=== PATIENT | female | born 1940 | race Caucasian/White ===

== ENCOUNTER 2018-03-31 10:39 | Day surgery (SDC) | payer MEDICARE ==
[~2018-03-31 10:39] MED LIST: ACETAMINOPHEN 1,000 MG/100 ML BTL IV ONE; CEFAZOLIN 2 Gram 2 GM/50 ML BAG IVPB ONE
[2018-03-31] MEDS ORDERED: FENTANYL PF 100MCG/2ML VIAL IV ONE (10:40)
[2018-03-31] MEDS ORDERED: EPINEPHRINE 1 MG/ML AMPUL SQ ONE (10:40)
[2018-03-31] MEDS ORDERED: LIDOCAINE 2% MDV (20MG/ML) 20ML VIAL IV ONE (10:40)
[2018-03-31] MEDS ORDERED: PROPOFOL 10 MG/ML VIAL IV ONE (10:40)
[2018-03-31] MEDS ORDERED: METHYLPREDNISOLONE 40MG/VIAL IM ONE (10:40)
[2018-03-31] MEDS ORDERED: ONDANSETRON HCL IV 4 MG/2 ML VIAL IVP ONE (10:40)
[2018-03-31] MEDS ORDERED: MIDAZOLAM HCL 2MG/2ML VIAL IV ONE (10:40)
[2018-03-31] MEDS ORDERED: DEXAMETHASONE 4 MG/ML 1ML VIAL IVP ONE (10:40)
[2018-03-31] MEDS ORDERED: BUPIVACAINE 0.5% W/EPI MPF 30 ML VIAL IVP ONE (10:40)
[2018-03-31] MEDS ORDERED: MORPHINE SULFATE 4 MG/ML VIAL IVP ONE (10:40)
[2018-03-31] MEDS ORDERED: SEVOFLURANE 250 ML INH ONE (10:40)
[2018-03-31] MEDS ORDERED: MORPHINE SULFATE 4 MG/ML VIAL ONE (12:29)
--- NOTE | 2018-03-31 19:35 | Operative Note ---
DATE OF SURGERY: 03/31/2018 PREOPERATIVE DIAGNOSIS: INTERNAL DERANGEMENT OF THE RIGHT KNEE. POSTOPERATIVE DIAGNOSES: 1. LARGE FLAP TEAR INVOLVING THE POSTERIOR HORN OF THE MEDIAL MENISCUS. 2. FRINGE TEAR INVOLVING THE LATERAL AND ANTERIOR HORN OF THE LATERAL MENISCUS. PROCEDURE: RIGHT KNEE ARTHROSCOPY WITH PARTIAL MEDIAL AND LATERAL MENISCECTOMIES. STAFF SURGEON: TEN CARDONA M.D. ANESTHESIA: GENERAL. PREPARATION: CHLORAPREP. INDIVIDUAL CONSIDERATIONS: NONE. PROCEDURE: The patient was taken to the Operating Room and placed supine on the operating table. She had a successful induction of a general anesthetic. Her right knee was prepped and then draped in the usual fashion. Examination under anesthesia showed normal ligaments. The patient had a superior lateral inflow cannula placed. The skin was infiltrated with 0.5% Marcaine with Epinephrine prior. A clear effusion was drained. The knee was inflated with normal saline. An inferior medial and an inferior lateral portal were made in a similar fashion. The arthroscope was introduced through the inferior lateral portal up into the pouch. The patellofemoral joint showed maybe some soft change but nothing to debride, no significant synovitis in either pouch or gutter and no loose bodies were seen. Medially, she had a large displaced flap tear involving the posterior horn of the medial meniscus with the stalk posteromedially. This was amputated. Basically most of the posterior horn was debrided out with basket forceps and a shaver. The articular cartilage looked good. In the notch, the cruciates were normal. Laterally, articular cartilage was good but she had a fringe tear involving the lateral and anterior horns, which were smoothed off with a shaver. The knee was irrigated out with saline to remove loose floating debris. Portals were closed with inessa and 20 mL of 0.5% Marcaine with Epinephrine along with 4 mg of Morphine and 80 mg of Depo-Medrol were injected into the knee and a sterile Bulkee compressive dressing was applied. The patient tolerated the procedure well. Needle and sponge counts were correct. Estimated blood loss was minimal and she was taken back to Recovery in good condition. There were no complications. JOB NUMBER: [id number] MTDD
== END 2018-03-31 14:05 | disposition home or self-care (01) ==
LOC: SUR 10:39
PROVIDERS: ATTEND Orthopaedic Surgery
DX: S83.241A Other tear of medial meniscus, current injury, right knee, initial encounter (principal); S83.281A Other tear of lateral meniscus, current injury, right knee, initial encounter
CPT/HCPCS: J0171; J1030; J2270; J2405

== ENCOUNTER 2018-06-09 11:21 | Day surgery (SDC) | payer MEDICARE ==
[2018-06-09] MEDS ORDERED: FENTANYL PF 100MCG/2ML VIAL IV ONE (11:22)
[2018-06-09] MEDS ORDERED: MIDAZOLAM HCL 2MG/2ML VIAL IV ONE (11:22)
[2018-06-09] MEDS ORDERED: LIDOCAINE 2% MDV (20MG/ML) 20ML VIAL IV ONE (11:22)
[2018-06-09] MEDS ORDERED: PROPOFOL 10 MG/ML VIAL IV ONE (11:22)
[2018-06-09] MEDS ORDERED: DESFLURANE 240 ML BTL INH ONE (11:22)
[2018-06-09] MEDS ORDERED: ONDANSETRON HCL IV 4 MG/2 ML VIAL IVP ONE (11:22)
[2018-06-09] MEDS ORDERED: BUPIVACAINE 0.5% W/EPI MPF 30 ML VIAL IVP ONE (11:22)
[2018-06-09] MEDS ORDERED: DEXAMETHASONE 4 MG/ML 1ML VIAL IVP ONE (11:22)
[2018-06-09] MEDS ORDERED: MORPHINE SULFATE 4 MG/ML VIAL ONE (14:17)
--- NOTE | 2018-06-10 10:30 | Operative Note ---
DATE OF SURGERY: 06/09/2018 PREOPERATIVE DIAGNOSIS: Internal derangement of right knee. Question tear of the medial meniscus. POSTOPERATIVE DIAGNOSES: 1. Complex tear involving anterior and posterior horn of the medial meniscus. 2. 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 OPERATION: Right knee arthroscopy with partial medial meniscectomy. Staff Surgeon: Filiberto Velásquez MD Anesthesia: General. Preparation: Chloraprep. Individual Considerations: None. PROCEDURE: The patient was taken to the operating room, placed supine on the operating room table. The patient had a successful induction of a general anesthetic. The right lower extremity was prepped and draped in the usual fashion. The patient had a superolateral inflow cannula placed. Skin was infiltrated with 0.5% Marcaine with epinephrine prior. A clear effusion was drained. The knee was inflated with normal saline. An inferomedial and an inferolateral portal were made in a similar fashion. The arthroscope was introduced through the inferolateral portal up into the pouch. Patellofemoral compartment was normal. No loose bodies were seen in the pouch or either gutter medially. She had a new flap tear involving the posterior horn of the medial meniscus. She had a previous resection but this was clearly new. There was some fraying anteriorly. A basket forceps and a shaver were used to remove the unstable portions. There was small grade 3 change in the femoral condyles and soft change at the tibial plateau. In the notch, the cruciates were normal. Lateral compartment structures were absolutely normal. The knee was irrigated out with saline to remove loose floating debris. Portals were closed with inessa, and 20 mL of 0.25% Marcaine with epinephrine along with 4 mg of morphine and 80 mg of Depo-Medrol were injected into the knee. A sterile bulky compressive dressing was applied. The patient tolerated procedure well. Needle and sponge counts were correct. Estimated blood loss was minimal. She was taken back to recovery in good condition. There were no complications. JACKELIN
== END 2018-06-09 15:35 | disposition home or self-care (01) ==
LOC: SUR 11:21
PROVIDERS: ATTEND Orthopaedic Surgery
DX: S83.231A Complex tear of medial meniscus, current injury, right knee, initial encounter (principal); M94.261 Chondromalacia, right knee
CPT/HCPCS: 29881; 01400; J2405; J3010; J0690; J2270

== ENCOUNTER 2019-06-28 18:23 | Inpatient (IN) | payer MEDICARE ==
[2019-06-28] MEDS ORDERED: ONDANSETRON HCL IV 4 MG/2 ML VIAL IVP ONE (18:35)
--- NOTE | 2019-06-28 18:39 | Emergency Department Record ---
History of Present Illness - General Chief Complaint: Fever Stated Complaint: FEVER/VOMITTING Time Seen by Provider: 06/28/19 18:34 Source: Patient Mode of Arrival: Ambulatory Limitations: No limitations - History of Present Illness Initial Comments: 78 yo female presents to ED for evaluation of nausea, vomiting, flank pain, and fevers/chills that began last evening, worsened today. Patient denies productive cough symptoms, reports similar symptoms 2 years ago however resulting from an infected kidney stone. Patient denies health problems at her baseline. MD Complaint: Fever, Weakness Onset/Timin -: Days(s) Associated Symptoms: Abdominal pain, Vomiting, Chills, Nausea - Related Data Home Medications Medication Instructions Recorded Confirmed Last Taken Multivitamin [Daily Multiple 1 tab PO DAILY 06/28/19 06/28/19 Unknown Vitamin] Solifenacin Succinate [Vesicare] 10 mg PO DAILY 06/28/19 06/28/19 Unknown Allergies Allergy/AdvReac Type Severity Reaction Status Date / Time No Known Drug Allergies Allergy Verified 03/29/18 10:10 Review of Systems Constitutional: Reports: Chills, Fever. Denies: Malaise, Night sweats Eyes: Denies: Eye discharge, Eye pain ENT: Denies: Congestion, Ear pain, Epistaxis Respiratory: Denies: Cough, Dyspnea Cardiovascular: Denies: Chest pain, Dyspnea on exertion Endocrine: Denies: Fatigue, Heat or cold intolerance Gastrointestinal: Reports: Abdominal pain, Nausea, Vomiting. Denies: Constipation Genitourinary: Denies: Incontinence, Retention Musculoskeletal: Reports: Back pain. 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 - CARDIOVASCULAR Hx Cardio Disorders: No - NEURO Hx Neuro Disorders: No - GI Hx GI Disorders: Yes Hx Reflux: Yes (occassionally) - Hx Genitourinary Disorders: Yes Hx Bladder Problem: Yes (incontinent takes meds wears a pad at times) Hx Kidney Stones: Yes - ENDOCRINE Hx Endocrine Disorders: No - MUSCULOSKELETAL Hx Musculoskeletal Disorders: Yes Comment:: right knee pain - PSYCH Hx Psych Problems: No - HEMATOLOGY/ONCOLOGY Hx Hematology/Oncology Disorders: Yes 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 negative: Conjunctival injection, Periorbital swelling, Periorbital tenderness, Scleral icterus - ENT Ear exam: negative: Auricular hematoma, Auricular trauma Nasal Exam: negative: Active bleeding, Discharge, Dried blood, Foreign body Mouth exam: negative: Drooling, Laceration, Muffled voice, Tongue elevation - Neck Neck exam: Normal inspection. negative: Meningismus, Tenderness - Respiratory Respiratory exam: Normal lung sounds bilaterally. negative: Rales, Respiratory distress, Rhonchi, Stridor - Cardiovascular Cardiovascular Exam: Normal rhythm, Normal heart sounds, Tachycardia - GI/Abdominal GI/Abdominal exam: Soft, Tenderness. negative: Rebound, Rigid - Rectal Rectal exam: Deferred - exam: Deferred - Extremities Extremities exam: Normal inspection. negative: Pedal edema, Tenderness - Back Back exam: Denies: CVA tenderness (R), CVA tenderness (L) - Neurological Neurological exam: Alert, Normal gait, Oriented X3 - Psychiatric Psychiatric exam: Normal affect, Normal mood - Skin Skin exam: Normal color. negative: Abrasion Type of lesion: negative: abrasion Course - Reevaluation(s) Reevaluation #1: 06/28/19 19:36 Laboratory studies were reviewed and appear grossly unremarkable for an acute process except for the following: CT Abdomen and Pelvis: Concern for wall thickening of the distal stomach ? Wall thickening vs. under-distention at the level of splenic flexure No hydronephrosis, bilateral non-obstructing nephrolithiasis 7.5 mm hyperdense lesion superior pole right kidney-too small to characterize, follow-up reccomended. Reevaluation #2: 06/28/19 20:03 UA was reviewed: 0-2 RBCs >50 WBCs 0-2 Epithelial cells Moderate bacteria CXR: No acute process Review of the patient's UA, influenza, CXR, and laboratory results appears c/w acute pyelonephritis. Will initiate treatment with Rocephin with plan for admission due to nausea, vomiting, and fever symptoms. Patient is in agreement with the plan of care as discussed. Reevaluation #3: 06/28/19 20:20 Case was discussed with Venus Lowe NP, will accept admission at this time. Medical Decision Making - Lab Data Result diagrams: 06/28/19 18:40 06/28/19 18:40 Disposition Disposition: Admit Clinical Impression: Pyelonephritis Nausea & vomiting Qualifiers: Vomiting type: unspecified Vomiting Intractability: non-intractable Qualified Code(s): R11.2 - Nausea with vomiting, unspecified Fever Qualifiers: Fever type: unspecified Qualified Code(s): R50.9 - Fever, unspecified Disposition: Still a Patient at [facility] Decision to Admit: Admit from ER Decision to Admit Date: 06/28/19 Decision to Admit Time: 20:06 Condition: (2) Stable Forms: Patient Portal Access Time of Disposition: 20:06 Quality - Quality Measures Quality Measures: N/A - Blood Pressure Screening Does Patient Have Any of the Following: No Blood Pressure Classification: Pre-Hypertensive BP Reading Systolic Measurement: 123 Diastolic Measurement: 63 Screening for High Blood Pressure: < Pre-Hypertensive BP, F/U Documented > [G8950] Pre-Hypertensive Follow-up Interventions: Referral to alternative/primary care provider.
[2019-06-28] MEDS ORDERED: 0.9 % SODIUM CHLORIDE 1000ML 1,000 ML IV SCH (18:45)
[2019-06-28 18:51] LABS: ABSOLUTE NEUTROPHIL COUNT 5.32; HEMATOCRIT 39.1 % (35.0-47.0); HEMOGLOBIN 12.3 gm/dl (11.6-16.0); MEAN CELL VOLUME 93.5 fl (81-97); MEAN CORPUSCULAR HEMOGLOBIN 29.4 pg (27-33); MEAN CORPUSCULAR HGB CONC 31.5 g/dl (32-36); MEAN PLATELET VOLUME 9.5 fl (7.4-10.4); PLATELET COUNT 254 K/uL (130-400); RED BLOOD COUNT 4.18 M/uL (3.80-5.40); RED CELL DISTRIBUTION WIDTH 13.4 % (11.5-14.5); WHITE BLOOD COUNT W/O DIFF 6.6 K/uL (4.2-12.2)
[2019-06-28 19:02] LABS: BILIRUBIN,TOTAL 0.4 mg/dL (0.2-1.0); TOTAL PROTEIN 7.3 g/dL (6.6-8.7)
[2019-06-28] MEDS ORDERED: ACETAMINOPHEN 500 MG TABLET PO ONE (19:05)
[2019-06-28 19:07] LABS: ALB/GLOB RATIO 1.4 (1.1-1.8); ALBUMIN 4.2 g/dL (4.0-5.0)
[2019-06-28 19:14] LABS: INFLUENZA A NEGATIVE (NEGATIVE); INFLUENZA B NEGATIVE (NEGATIVE)
[2019-06-28 19:15] LABS: PLATELET ESTIMATE NORMAL (NORMAL)
--- NOTE | 2019-06-28 19:30 | CT SCAN REPORT ---
EXAMINATION: CT Abdomen and Pelvis without IV Contrast EXAM DATE: 06/28/2019 7:28 PM TECHNIQUE: Standard protocol CT imaging of the abdomen and pelvis was performed without intravenous c ontrast. INDICATION: Abdominal pain, flank pain COMPARISON: None ENCOUNTER: Not applicable CT ABDOMEN AND PELVIS FINDINGS: Lung Bases: Bilateral breast implants. Postsurgical change right lung base. Hepatobiliary: 1.5 cm low-density lesion posterior right hepatic dome consistent with a cyst. Gallbla dder is not identified. Pancreas: No focal lesion identified. Spleen: The spleen is not enlarged. Adrenals: The adrenal glands are normal. Kidneys, Ureters, & Bladder: No hydronephrosis bilaterally. Bilateral nonobstructing nephrolithiasis. 7.5 mm hyperdense lesion superior pole right kidney for which the etiology is indeterminate 4.5 cm p artially exophytic cyst upper pole left kidney. Course and contour of the ureters is unremarkable tre aterally and the urinary bladder is within normal limits. Gastrointestinal: There is suggestion of wall thickening distal stomach extending into the pyloric re gion. Small bowel is not obstructed. Appendix is not identified. No significant inflammatory change w ithin the right lower quadrant. Focal under distention versus wall thickening seen at the level of th e splenic flexure. Correlation to colonoscopy if not recently performed is recommended. Diverticular disease of the colon without acute diverticulitis identified. Reproductive Organs: Uterus is present. Lymphatic System: There is no adenopathy within the abdomen or pelvis. Vasculature: Normal caliber abdominal aorta Peritoneum: No free fluid, free air, or inflammation Abdominal wall & Musculoskeletal: No suspicious bone lesions. Assessment of the solid organs, soft tissues, and vascular structures is markedly limited on noncontr ast imaging, IMPRESSION: Concern for wall thickening of the distal stomach extending to the pyloric region. Additional area of wall thickening versus underdistention of the level splenic flexure. Need for direct visualization o f these areas with endoscopy and colonoscopy should be determined clinically. No hydronephrosis bilaterally. Bilateral nonobstructing nephrolithiasis. 7.5 mm hyperdense lesion superior pole of the right kidney too small to completely characterize. Foll ow-up to demonstrate stability is requested. Additional findings as detailed above Dictated by: Aaron Sanchez MD on 06/28/2019 7:15 PM. .
[2019-06-28 19:46] LABS: URINE APPEARANCE TURBID; URINE BILIRUBIN NEGATIVE (NEGATIVE); URINE BLOOD LARGE (NEGATIVE); URINE COLOR YELLOW; URINE GLUCOSE (UA) NEGATIVE (NEGATIVE); URINE KETONE NEGATIVE (NEGATIVE); URINE LEUKOCYTE ESTERASE LARGE (NEGATIVE); URINE NITRITE POSITIVE (NEGATIVE); URINE UROBILINOGEN 0.2 E.U./dL (0.20 - 1.00)
[2019-06-28 20:00] LABS: URINE BACTERIA MODERATE; URINE EPITHELIAL CELLS 0 - 2 (FEW); URINE RBC 0 - 2 (NONE SEEN); URINE WBC >50 (0-2/hpf)
[2019-06-28 20:01] LABS: URINE MUCUS FEW
--- NOTE | 2019-06-28 20:35 | RADIOLOGY REPORT ---
EXAMINATION: Two View Chest Radiographs EXAM DATE: 06/28/2019 8:23 PM TECHNIQUE: Frontal and lateral views INDICATION: Cough, fever COMPARISON: None ENCOUNTER: Not applicable FINDINGS: The heart, mediastinum, and pulmonary vasculature are normal. No lung consolidation or pleural effu sions are present. Surgical suture material is associated with the right hilum. There is linear, subs egmental atelectasis within both lung bases. IMPRESSION: No acute cardiopulmonary abnormality. Dictated by: Prince Vazquez MD on 06/28/2019 8:32 PM. .
[2019-06-28] MEDS ORDERED: ACETAMINOPHEN 500 MG TABLET PO PRN (20:48)
[2019-06-28] MEDS ORDERED: 0.9 % SODIUM CHLORIDE 1000ML 1,000 ML IV ONE (20:48)
[2019-06-28] MEDS ORDERED: ONDANSETRON HCL IV 4 MG/2 ML VIAL IVP PRN (20:48)
[2019-06-28] MEDS ORDERED: CEFTRIAXONE 1GM/50ML BAG 1 GM/50 ML BAG IVPB ONE (20:48)
[2019-06-29 06:52] LABS: ABSOLUTE NEUTROPHIL COUNT 8.29; BASO % 0.1 % (0-6); GRAN % 82.3 % (47-80); HEMATOCRIT 34.9 % (35.0-47.0); HEMOGLOBIN 10.7 gm/dl (11.6-16.0); LYMPH % 7.1 % (16-45); MEAN CELL VOLUME 94.3 fl (81-97); MEAN CORPUSCULAR HEMOGLOBIN 28.9 pg (27-33); MEAN CORPUSCULAR HGB CONC 30.7 g/dl (32-36); MEAN PLATELET VOLUME 9.6 fl (7.4-10.4); MONO % 10.5 % (0-9); PLATELET COUNT 249 K/uL (130-400); RED CELL DISTRIBUTION WIDTH 13.4 % (11.5-14.5); WHITE BLOOD COUNT W/O DIFF 10.1 K/uL (4.2-12.2)
[2019-06-29] MEDS ORDERED: SOLIFENACIN SUCCINATE 10 MG PO SCH (10:00)
[2019-06-29] MEDS ORDERED: KETOROLAC 30 MG/ML VIAL IVP PRN (10:26)
[2019-06-29] MEDS ORDERED: CEFTRIAXONE 1GM/50ML BAG 1 GM/50 ML BAG IVPB SCH (10:45)
--- NOTE | 2019-06-29 12:42 | History & Physical ---
History of Present Illness - Date of Service Date of Service for History & Physical: 06/29/19 - History of Present Illness Admitting Diagnosis: Pyelonephritis. Fever. Nausea/Vomiting History of Present Illness: 06/29/19: Patient presented to ER for nausea, vomiting, intractable right-sided flank pain, fevers/chills x1 day. Patient reports history of same with admission 01/07- at [facility] for infected kidney stone(s)/sepsis. Patient reported vomiting x2 on the way to the ER as well as once she arrived in ER. Patient reported that she didn't have N/V with previous stone(s). CT report: concern for wall thickening of distal stomach (likely d/t vomiting), bilateral non-obstructing stones without hydronephrosis. Only PMHx bladder incontinence, urgency, frequency which she takes Vesicare for. PCP: Bakari Reyes ED Course: Vital Signs Temp Pulse Pulse Resp BP BP Pulse Ox 06/29/19 08:00 97.6 F 78 16 94/43 94 L 06/29/19 06:00 99.6 F 06/29/19 05:16 101.5 F H 88 16 118/58 95 06/29/19 01:55 98.2 F 71 16 100/52 95 06/28/19 21:00 100 H 16 06/28/19 20:50 99.6 F 100 H 16 101/60 96 06/28/19 20:41 100 F H 98 H 24 118/50 95 06/28/19 19:33 100.8 F H 103 H 24 132/60 94 L 06/28/19 19:01 103.0 F H 06/28/19 18:27 99.2 F 102 H 20 123/63 94 L Intake & Output 06/27/19 06/28/19 06/29/19 06/30/19 06:59 06:59 06:59 06:59 Intake Total 1530 50 Balance 1530 50 Weight 126 lb 8 oz Intake: IV 1050 50 Oral 480 Other: Date of Last Bowel 06/28/19 Movement Weight Measurement Method Standing Scale Laboratory 06/29/19 06/29/19 06/28/19 06:30 06:30 19:44 WBC 10.1 RBC 3.70 L Hgb 10.7 L Hct 34.9 L MCV 94.3 MCH 28.9 MCHC 30.7 L RDW 13.4 Plt Count 249 MPV 9.6 Gran % 82.3 H Neutrophils % Band Neutrophils % Lymphocytes % 7.1 L Monocytes % 10.5 H Eosinophils % 0.0 Basophils % 0.1 Absolute Neutrophils 8.29 Lymphocytes Monocytes Differential Comment Platelet Estimate Sodium Potassium Chloride Carbon Dioxide Anion Gap BUN Creatinine Estimated GFR Random Glucose Lactic Acid Calcium Total Bilirubin AST ALT Alkaline Phosphatase Total Protein Albumin Globulin Albumin/Globulin Ratio Lipase Procalcitonin 1.11 Urine Color Yellow Urine Appearance Turbid H Urine pH 6.0 Ur Specific [place] 1.015 Urine Protein 100 mg/dl H Urine Glucose (UA) Negative Urine Ketones Negative Urine Blood Large H Urine Nitrite Positive H Urine Bilirubin Negative Urine Urobilinogen 0.2 Ur Leukocyte Esterase Large H Urine RBC 0 - 2 Urine WBC >50 Ur Epithelial Cells 0 - 2 Urine Bacteria Moderate Urine Mucus Few Influenza Type A Ag Influenza Type B Ag 06/28/19 06/28/19 06/28/19 18:40 18:40 18:40 WBC RBC Hgb Hct MCV MCH MCHC RDW Plt Count MPV Gran % Neutrophils % Band Neutrophils % Lymphocytes % Monocytes % Eosinophils % Basophils % Absolute Neutrophils Lymphocytes Monocytes Differential Comment Platelet Estimate Sodium 140 Potassium 3.8 Chloride 100 Carbon Dioxide 27.0 Anion Gap 13.0 BUN 24 H Creatinine 1.0 H Estimated GFR 57 Random Glucose 162 H Lactic Acid 1.5 Calcium 9.6 Total Bilirubin 0.40 AST 18 ALT 11 Alkaline Phosphatase 61 Total Protein 7.3 Albumin 4.2 Globulin 3.1 Albumin/Globulin Ratio 1.4 Lipase 19 Procalcitonin Urine Color Urine Appearance Urine pH Ur Specific [place] Urine Protein Urine Glucose (UA) Urine Ketones Urine Blood Urine Nitrite Urine Bilirubin Urine Urobilinogen Ur Leukocyte Esterase Urine RBC Urine WBC Ur Epithelial Cells Urine Bacteria Urine Mucus Influenza Type A Ag Negative Influenza Type B Ag Negative 06/28/19 18:40 WBC 6.6 RBC 4.18 Hgb 12.3 Hct 39.1 MCV 93.5 MCH 29.4 MCHC 31.5 L RDW 13.4 Plt Count 254 MPV 9.5 Gran % Neutrophils % 81.0 H Band Neutrophils % 1.0 Lymphocytes % Monocytes % Eosinophils % Not Reportable Basophils % Not Reportable Absolute Neutrophils 5.32 Lymphocytes 9.0 L Monocytes 9.0 Differential Comment N Platelet Estimate Normal Sodium Potassium Chloride Carbon Dioxide Anion Gap BUN Creatinine Estimated GFR Random Glucose Lactic Acid Calcium Total Bilirubin AST ALT Alkaline Phosphatase Total Protein Albumin Globulin Albumin/Globulin Ratio Lipase Procalcitonin Urine Color Urine Appearance Urine pH Ur Specific [place] Urine Protein Urine Glucose (UA) Urine Ketones Urine Blood Urine Nitrite Urine Bilirubin Urine Urobilinogen Ur Leukocyte Esterase Urine RBC Urine WBC Ur Epithelial Cells Urine Bacteria Urine Mucus Influenza Type A Ag Influenza Type B Ag I Past Surgical History Date/Surgery right knee scope 03-31-18 RML lung removed (benign) ovary tonsils many cosmetic sx's Past Medical History Hx Respiratory Disorders Yes Hx Bronchitis Yes Hx Pneumonia Yes Hx of SOB Yes: with exertion 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 Hx Cardiovascular Disorders No Hx Neurological Disorders No Hx Gastrointestinal Disorders Yes Hx Gastroesophageal Reflux Yes: occassionally Hx Genitourinary Disorders Yes Hx Bladder Problem Yes: incontinent takes meds wears a pad at times Hx Kidney Stones Yes Hx Endocrine Disorders No Hx of Immunosuppressed No Hx Musculoskeletal Disorders Yes Comment: right knee pain Hx Psychiatric Problems No Hx Hematology/Oncology Disorders Yes 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 Yes Family Hx Comment (NOT TO BE USED IN mom and dad MVA's dad at PLACE OF ITEMS BELOW) age 93 Hx Stroke Brother/Sister Skin Risk Assessment Scale Sensory Perception No Impairment Moisture Risk Occasionally Moist Activity Risk Walks Occasionally Mobility Risk No Limitations Nutrition Risk Adequate Friction & Shear Risk No Apparent Problem Skin Risk Total Score (points) 20 Skin Risk Evaluation No Risk Wound Present on Admission Wound present upon admission? No Medications Acetaminophen (Tylenol 500mg Tab) 1,000 mg PO Q6H PRN PRN Reason: PAIN - MILD(1-4)/FEVER Ondansetron HCl (Zofran) 4 mg IVP Q4H PRN PRN Reason: NAUSEA Sodium Chloride () 1,000 mls @ 125 mls/hr IV .Q8H ONE Stop: 06/29/19 04:47 Last Admin: 06/28/19 21:44 Dose: 125 mls/hr Documented by: SELVIN CEFTRIAXONE 1GM/50ML BAG (Ceftriaxone 1 Gm-D5w Bag) 1 gm in 50 mls @ 100 mls/hr IVPB NOW ONE Problems Fever (Acute) R50.9 Nausea & vomiting (Acute) R11.2 Pyelonephritis (Acute) N12 06/29/19: Patient independently ambulating halls this AM without distress. Patient A&Ox4. Reported fever throughout the night. Giving PRN Tylenol. Patient appears to be concerned for repeat of sepsis, asking when her next antibiotic is due and if we did all appropriate testing for infection. Patient eager to D/C home. Would like another dose IV Rocephin and monitor pain control and fever throughout AM/early afternoon. No nursing concerns noted during admission. Urine & blood cultures remain pending. Travel Screening - Travel/Exposure Within Last 30 Days Have you traveled within the last 30 days?: No - Travel/Exposure Within Last Year Have you traveled outside the [place] in the last year?: No - Additonal Travel Details Have you been exposed to anyone with a communicable illness?: No Review of Systems Constitutional: Reports: Chills, Fever. Denies: Malaise, Night sweats Eyes: Denies: Eye discharge, Eye pain ENT: Denies: Congestion, Ear pain, Epistaxis Respiratory: Denies: Cough, Dyspnea Cardiovascular: Denies: Chest pain, Dyspnea on exertion Endocrine: Denies: Fatigue, Heat or cold intolerance Gastrointestinal: Reports: Abdominal pain, Nausea, Vomiting. Denies: Constipation Genitourinary: Denies: Incontinence, Retention Musculoskeletal: Reports: Back pain. Denies: Arthralgia Skin: Denies: Bruising, Change in color Neurological: Denies: Abnormal gait, Confusion, Headache, Seizure Psychiatric: Denies: Anxiety Hematological/Lymphatic: Denies: Anemia, Blood Clots Past Medical History - SOCIAL HISTORY Smoking Status: Never smoker Alcohol Use: None Drug Use: None - RESPIRATORY Hx Respiratory Disorders: Yes Hx Bronchitis: Yes Hx Pneumonia: Yes Comment:: carcinoid RML removed 29 yrs ago - CARDIOVASCULAR Hx Cardio Disorders: No - NEURO Hx Neuro Disorders: No - GI Hx GI Disorders: Yes Hx Reflux: Yes (occassionally) - Hx Genitourinary Disorders: Yes Hx Bladder Problem: Yes (incontinent takes meds wears a pad at times) Hx Kidney Stones: Yes Hx UTI: Yes - ENDOCRINE Hx Endocrine Disorders: No - MUSCULOSKELETAL Hx Musculoskeletal Disorders: Yes Hx Osteoporosis: Yes Comment:: right knee pain - PSYCH Hx Psych Problems: No - HEMATOLOGY/ONCOLOGY Hx Hematology/Oncology Disorders: Yes 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) Hx Blood Transfusions: Yes Hx Blood Transfusion Reaction: Yes (58 yrs ago) Family Medical History Any Significant Family History?: Yes Family Hx Comment (NOT TO BE USED IN PLACE OF ITEMS BELOW): mom and dad MVA's dad at age 93 Hx Stroke: Brother/Sister H&P Meds/Allergies - Allergies Allergies: Allergies Allergy/AdvReac Type Severity Reaction Status Date / Time No Known Drug Allergies Allergy Verified 03/29/18 10:10 - Home Medications Home Medications Medication Instructions Recorded Confirmed Last Taken Multivitamin [Daily Multiple 1 tab PO DAILY 06/28/19 06/28/19 Unknown Vitamin] Solifenacin Succinate [Vesicare] 10 mg PO DAILY 06/28/19 06/28/19 Unknown - Active Medications Active Medications: Current Medications Acetaminophen (Tylenol 500mg Tab) 1,000 mg PO Q6H PRN PRN Reason: PAIN - MILD(1-4)/FEVER Last Admin: 06/29/19 04:37 Dose: 1,000 mg Documented by: Sodium Chloride () 1,000 mls @ 0 mls/hr IV .Q0M [facility] Last Infusion: 06/28/19 20:45 Dose: Infused Documented by: CEFTRIAXONE 1GM/50ML BAG (Ceftriaxone 1 Gm-D5w Bag) 1 gm in 50 mls @ 100 mls/hr IVPB Q12H [facility] Last Infusion: 06/29/19 12:14 Dose: Infused Documented by: Ketorolac Tromethamine (Toradol) 30 mg IVP Q8H PRN PRN Reason: PAIN - MODERATE (1-7) Last Admin: 06/29/19 11:28 Dose: 30 mg Documented by: Ondansetron HCl (Zofran) 4 mg IVP Q4H PRN PRN Reason: NAUSEA Physical Exam - Vital Signs Vital Signs: Vital Signs - Last 24 Hrs Temp Pulse Pulse Resp BP BP Pulse Ox 06/29/19 08:00 97.6 F 78 16 94/43 94 L 06/29/19 06:00 99.6 F 06/29/19 05:16 101.5 F H 88 16 118/58 95 06/29/19 01:55 98.2 F 71 16 100/52 95 06/28/19 21:00 100 H 16 06/28/19 20:50 99.6 F 100 H 16 101/60 96 06/28/19 20:41 100 F H 98 H 24 118/50 95 06/28/19 19:33 100.8 F H 103 H 24 132/60 94 L 06/28/19 19:01 103.0 F H 06/28/19 18:27 99.2 F 102 H 20 123/63 94 L - General General Appearance: Alert, Oriented x3, Cooperative, No acute distress, Anxious Limitations: No limitations - Head Head exam: Atraumatic, Normocephalic, Normal inspection - Eye Eye exam: Normal appearance - Neck Neck exam: Normal inspection, Full ROM - Respiratory Respiratory exam: Normal lung sounds bilaterally. negative: Rales, Respiratory distress, Rhonchi, Stridor, Wheezes - Cardiovascular Cardiovascular Exam: Normal rhythm, Normal heart sounds Peripheral Pulses: 2+: Radial (R), Radial (L), Dorsalis Pedis (R), Dorsalis Pedis (L) - GI/Abdominal GI/Abdominal exam: Soft, Normal bowel sounds. negative: Rebound, Rigid, Tenderness - Rectal Rectal exam: Deferred - exam: Deferred - Extremities Extremities exam: Normal inspection. negative: Pedal edema - Back Back exam: Reports: Normal inspection, CVA tenderness (R). Denies: CVA tenderness (L) - Neurological Neurological exam: Alert, Normal gait, Oriented X3 - Psychiatric Psychiatric exam: Normal affect, Normal mood - Skin Skin exam: Dry, Intact, Normal color Results - Labs Result Diagrams: 06/29/19 06:30 06/28/19 18:40 Labs Last 24 Hours: Laboratory Results - last 24 hr 06/28/19 06/28/19 06/28/19 18:40 18:40 18:40 WBC 6.6 RBC 4.18 Hgb 12.3 Hct 39.1 MCV 93.5 MCH 29.4 MCHC 31.5 L RDW 13.4 Plt Count 254 MPV 9.5 Gran % Neutrophils % 81.0 H Band Neutrophils % 1.0 Lymphocytes % Monocytes % Eosinophils % Not Reportable Basophils % Not Reportable Absolute Neutrophils 5.32 Lymphocytes 9.0 L Monocytes 9.0 Differential Comment N Platelet Estimate Normal Sodium 140 Potassium 3.8 Chloride 100 Carbon Dioxide 27.0 Anion Gap 13.0 BUN 24 H Creatinine 1.0 H Estimated GFR 57 Random Glucose 162 H Lactic Acid Calcium 9.6 Total Bilirubin 0.40 AST 18 ALT 11 Alkaline Phosphatase 61 Total Protein 7.3 Albumin 4.2 Globulin 3.1 Albumin/Globulin Ratio 1.4 Lipase 19 Procalcitonin Urine Color Urine Appearance Urine pH Ur Specific [place] Urine Protein Urine Glucose (UA) Urine Ketones Urine Blood Urine Nitrite Urine Bilirubin Urine Urobilinogen Ur Leukocyte Esterase Urine RBC Urine WBC Ur Epithelial Cells Urine Bacteria Urine Mucus Influenza Type A Ag Negative Influenza Type B Ag Negative 06/28/19 06/28/19 06/29/19 18:40 19:44 06:30 WBC 10.1 RBC 3.70 L Hgb 10.7 L Hct 34.9 L MCV 94.3 MCH 28.9 MCHC 30.7 L RDW 13.4 Plt Count 249 MPV 9.6 Gran % 82.3 H Neutrophils % Band Neutrophils % Lymphocytes % 7.1 L Monocytes % 10.5 H Eosinophils % 0.0 Basophils % 0.1 Absolute Neutrophils 8.29 Lymphocytes Monocytes Differential Comment Platelet Estimate Sodium Potassium Chloride Carbon Dioxide Anion Gap BUN Creatinine Estimated GFR Random Glucose Lactic Acid 1.5 Calcium Total Bilirubin AST ALT Alkaline Phosphatase Total Protein Albumin Globulin Albumin/Globulin Ratio Lipase Procalcitonin Urine Color Yellow Urine Appearance Turbid H Urine pH 6.0 Ur Specific [place] 1.015 Urine Protein 100 mg/dl H Urine Glucose (UA) Negative Urine Ketones Negative Urine Blood Large H Urine Nitrite Positive H Urine Bilirubin Negative Urine Urobilinogen 0.2 Ur Leukocyte Esterase Large H Urine RBC 0 - 2 Urine WBC >50 Ur Epithelial Cells 0 - 2 Urine Bacteria Moderate Urine Mucus Few Influenza Type A Ag Influenza Type B Ag 06/29/19 06:30 WBC RBC Hgb Hct MCV MCH MCHC RDW Plt Count MPV Gran % Neutrophils % Band Neutrophils % Lymphocytes % Monocytes % Eosinophils % Basophils % Absolute Neutrophils Lymphocytes Monocytes Differential Comment Platelet Estimate Sodium Potassium Chloride Carbon Dioxide Anion Gap BUN Creatinine Estimated GFR Random Glucose Lactic Acid Calcium Total Bilirubin AST ALT Alkaline Phosphatase Total Protein Albumin Globulin Albumin/Globulin Ratio Lipase Procalcitonin 1.11 Urine Color Urine Appearance Urine pH Ur Specific [place] Urine Protein Urine Glucose (UA) Urine Ketones Urine Blood Urine Nitrite Urine Bilirubin Urine Urobilinogen Ur Leukocyte Esterase Urine RBC Urine WBC Ur Epithelial Cells Urine Bacteria Urine Mucus Influenza Type A Ag Influenza Type B Ag - Imaging and Cardiology CT scan - abdomen Status: Report reviewed CT scan - pelvis Status: Report reviewed VTE H&P Assessment - Risk for VTE Risk for VTE: Yes Risk Level: Low Risk Assessment Date: 06/29/19 Risk Assessment Time: 12:44 VTE Orders Placed or Will Be Placed: Yes Plan - Inpatient Certification Inpatient Certification: Admit to inpatient care: Based on my medical assessment, after consideration of patient's risk factors (age, co-morbidities and patient presenting symptoms and acuity), I expect that this patient will remain in the hospital greater than or equal to two midnights and that the services needed warrant inpatient care because: Patient Risk Factors: [age, acute disease process, pain control] Estimated length of stay: [24-72] The patient may reasonably be expected to be discharged or transferred to a hospital within 96 hours after admission to [facility]. Services needed: [IV antibiotics, IV pain medication, IV nausea control] Post hospital care (if known): [] I certify that my determination is in accordance with my understanding of Medicare requirements for reasonable and necessary inpatient services. 06/29/19 12:44 - Detailed Diagnosis and Plan (1) Pyelonephritis Current Visit: Yes Status: Acute Base Code: N12 - TUBULO-INTERSTITIAL NEPHRITIS, NOT SPCF ACUTE OR CHRONIC Comment: 06/29/19: -CT abd/pelvis: Concern for wall thickening of distal stomach extending to the pyloric region. Additional area of wall thickening, versus underdistension of the level splenic flexure. Need for direct visualization of these areas with endoscopy and colonoscopy should be determined clinically. No hydronephrosis bilaterally. Bilateral non-obstructing nephrolithiasis. 7.5 mm hyperdense lesion superior pole of right kidney too small to completely characterize. Follow-up to demonstrate stability is requested. -IV NS 125ml/hr -IV Rocephin 1gm Q12H -Temp ER 103.0 >> 97.6 most recent -Zofran PRN nausea, no vomiting since ER -Acetaminophen & Toradol PRN pain -Urine culture pending -Blood culture pending -Procalcitonin 1.1 -WBC 6.6 >> 10.1 -Neutrophils 81.0 -BUN 24, Creat 1.0, GFR 57 -Lactic Acid 1.5 (2) Fever Current Visit: Yes Status: Acute Qualifiers: Fever type: unspecified Qualified Code(s): R50.9 - Fever, unspecified Base Code: R50.9 - FEVER, UNSPECIFIED Comment: 06/29/19: -Temp 103.0 ER, 97.6 most recent -PRN Actaminophen ordered -IV Rocephin 1gm Q12H -IV NS 125 ml/hr -Urine culture still pending -Blood culture x2 still pending -Procalcitonin 1.11 -WBC 6.6 >> 10.1 -Neutrophils 81.0 -Lactatic Acid 1.5 -Flu Neg (3) Nausea & vomiting Current Visit: Yes Status: Acute Qualifiers: Vomiting type: unspecified Vomiting Intractability: non-intractable Qualified Code(s): R11.2 - Nausea with vomiting, unspecified Base Code: R11.2 - NAUSEA WITH VOMITING, UNSPECIFIED Comment: 06/29/19: -Vomited x2 prior to arrival in ER, no vomiting since admission -PRN Zofran ordered -IV NS 125 ml/hr -Regular diet, advance as tolerated -Tolerating PO intake (4) DVT prophylaxis Current Visit: Yes Status: Acute Base Code: Z29.9 - ENCOUNTER FOR PROPHYLACTIC MEASURES, UNSPECIFIED Comment: 06/29/19: -Low risk, nursing to encourage ambulation in room -Lovenox 40mg SQ Daily (5) Full code status Current Visit: Yes Status: Acute Base Code: Z78.9 - OTHER SPECIFIED HEALTH STATUS Comment: 06/29/19: -Full code status this admission
--- NOTE | 2019-06-29 13:56 | Discharge Summary ---
Providers Discharge Summary Date: 06/29/19 Date of admission: 06/28/19 20:41 Expected Date of Discharge: 06/29/19 Attending physician: LATRICIA NG Primary care physician: BAKARI REYES D.O. Physical Exam - Vital Signs Vital Signs: Vital Signs - Last 24 Hrs Temp Pulse Pulse Resp BP BP Pulse Ox 06/29/19 08:00 97.6 F 78 16 94/43 94 L 06/29/19 06:00 99.6 F 06/29/19 05:16 101.5 F H 88 16 118/58 95 06/29/19 01:55 98.2 F 71 16 100/52 95 06/28/19 21:00 100 H 16 06/28/19 20:50 99.6 F 100 H 16 101/60 96 06/28/19 20:41 100 F H 98 H 24 118/50 95 06/28/19 19:33 100.8 F H 103 H 24 132/60 94 L 06/28/19 19:01 103.0 F H 06/28/19 18:27 99.2 F 102 H 20 123/63 94 L - General General Appearance: Alert, Oriented x3, Cooperative, No acute distress Limitations: No limitations - Head Head exam: Atraumatic, Normocephalic, Normal inspection - Eye Eye exam: Normal appearance - Neck Neck exam: Normal inspection, Full ROM - Respiratory Respiratory exam: Normal lung sounds bilaterally. negative: Rales, Respiratory distress, Rhonchi, Stridor, Wheezes - Cardiovascular Cardiovascular Exam: Normal rhythm, Normal heart sounds Peripheral Pulses: 2+: Radial (R), Radial (L), Dorsalis Pedis (R), Dorsalis Pedis (L) - GI/Abdominal GI/Abdominal exam: Soft, Normal bowel sounds. negative: Rebound, Rigid, Tenderness - Rectal Rectal exam: Deferred - exam: Deferred - Extremities Extremities exam: Normal inspection. negative: Pedal edema - Back Back exam: Reports: Normal inspection, CVA tenderness (R) (improved). Denies: CVA tenderness (L) - Neurological Neurological exam: Alert, Normal gait, Oriented X3 - Psychiatric Psychiatric exam: Normal affect, Normal mood - Skin Skin exam: Dry, Intact, Normal color Hospitalization - Hospitalization Admission Diagnosis: Pyelonephritis. Fever. Nausea/Vomiting - Problem List/Discharge Diagnosis (1) Pyelonephritis Current Visit: Yes Status: Acute Base Code: N12 - TUBULO-INTERSTITIAL NEPHRITIS, NOT SPCF ACUTE OR CHRONIC Comment: 06/29/19: -CT abd/pelvis: Concern for wall thickening of distal stomach extending to the pyloric region. Additional area of wall thickening, versus underdistension of the level splenic flexure. Need for direct visualization of these areas with endoscopy and colonoscopy should be determined clinically. No hydronephrosis bilaterally. Bilateral non-obstructing nephrolithiasis. 7.5 mm hyperdense lesion superior pole of right kidney too small to completely characterize. Follow-up to demonstrate stability is requested. -IV NS 125ml/hr -IV Rocephin 1gm Q12H x 2 doses, will D/C home on Cefdinir 300mg BID x 6 more days -Temp ER 103.0 >> 97.6 most recent -Zofran PRN nausea, no vomiting since ER, nausea resolved p/pt -Acetaminophen & Toradol PRN pain, pain resolved with Tylenol only p/pt -Urine culture pending -Blood culture pending -Procalcitonin 1.1 -WBC 6.6 >> 10.1 -Neutrophils 81.0 -BUN 24, Creat 1.0, GFR 57 -Lactic Acid 1.5 (2) Fever Current Visit: Yes Status: Acute Discharge Diagnosis: Fever type: unspecified Qualified Code(s): R50.9 - Fever, unspecified Base Code: R50.9 - FEVER, UNSPECIFIED Comment: 06/29/19: -Temp 103.0 ER, 97.6 most recent -PRN Actaminophen ordered -IV Rocephin 1gm Q12H, will D/C home on Cefdinir 300mg BID x 6 more days -IV NS 125 ml/hr -Urine culture still pending -Blood culture x2 still pending -Procalcitonin 1.11 -WBC 6.6 >> 10.1 -Neutrophils 81.0 -Lactatic Acid 1.5 -Flu Neg (3) Nausea & vomiting Current Visit: Yes Status: Acute Discharge Diagnosis: Vomiting type: unspecified Vomiting Intractability: non-intractable Qualified Code(s): R11.2 - Nausea with vomiting, unspecified Base Code: R11.2 - NAUSEA WITH VOMITING, UNSPECIFIED Comment: 06/29/19: -Vomited x2 prior to arrival in ER, no vomiting since admission -PRN Zofran ordered, nausea resolved p/pt -IV NS 125 ml/hr -Regular diet, advance as tolerated -Tolerating PO intake (4) DVT prophylaxis Current Visit: Yes Status: Acute Base Code: Z29.9 - ENCOUNTER FOR PROPHYLACTIC MEASURES, UNSPECIFIED Comment: 06/29/19: -Low risk, nursing to encourage ambulation in room -Lovenox 40mg SQ Daily (5) Full code status Current Visit: Yes Status: Acute Base Code: Z78.9 - OTHER SPECIFIED HEALTH STATUS Comment: 06/29/19: -Full code status this admission - Hospitalization Course Disposition: Home, Self-Care Hospital Course: 06/29/19: Patient presented to ER for nausea, vomiting, intractable right-sided flank pain, fevers/chills x1 day. Patient reports history of same with admission 01/07- at [facility] for infected kidney stone(s)/sepsis. Patient reported vomiting x2 on the way to the ER as well as once she arrived in ER. Patient reported that she didn't have N/V with previous stone(s). CT report: concern for wall thickening of distal stomach (likely d/t vomiting), bilateral non-obstructing stones without hydronephrosis. Only PMHx bladder incontinence, urgency, frequency which she takes Vesicare for. PCP: Bakari Reyes ED Course: Vital Signs Temp Pulse Pulse Resp BP BP Pulse Ox 06/29/19 08:00 97.6 F 78 16 94/43 94 L 06/29/19 06:00 99.6 F 06/29/19 05:16 101.5 F H 88 16 118/58 95 06/29/19 01:55 98.2 F 71 16 100/52 95 06/28/19 21:00 100 H 16 06/28/19 20:50 99.6 F 100 H 16 101/60 96 06/28/19 20:41 100 F H 98 H 24 118/50 95 06/28/19 19:33 100.8 F H 103 H 24 132/60 94 L 06/28/19 19:01 103.0 F H 06/28/19 18:27 99.2 F 102 H 20 123/63 94 L Intake & Output 06/27/19 06/28/19 06/29/1909/20 06:59 06:59 06:59 06:59 Intake Total 1530 50 Balance 1530 50 Weight 126 lb 8 oz Intake: IV 1050 50 Oral 480 Other: Date of Last Bowel 06/28/19 Movement Weight Measurement Method Standing Scale Laboratory 06/29/19 06/29/19 06/28/19 06:30 06:30 19:44 WBC 10.1 RBC 3.70 L Hgb 10.7 L Hct 34.9 L MCV 94.3 MCH 28.9 MCHC 30.7 L RDW 13.4 Plt Count 249 MPV 9.6 Gran % 82.3 H Neutrophils % Band Neutrophils % Lymphocytes % 7.1 L Monocytes % 10.5 H Eosinophils % 0.0 Basophils % 0.1 Absolute Neutrophils 8.29 Lymphocytes Monocytes Differential Comment Platelet Estimate Sodium Potassium Chloride Carbon Dioxide Anion Gap BUN Creatinine Estimated GFR Random Glucose Lactic Acid Calcium Total Bilirubin AST ALT Alkaline Phosphatase Total Protein Albumin Globulin Albumin/Globulin Ratio Lipase Procalcitonin 1.11 Urine Color Yellow Urine Appearance Turbid H Urine pH 6.0 Ur Specific Mcgill 1.015 Urine Protein 100 mg/dl H Urine Glucose (UA) Negative Urine Ketones Negative Urine Blood Large H Urine Nitrite Positive H Urine Bilirubin Negative Urine Urobilinogen 0.2 Ur Leukocyte Esterase Large H Urine RBC 0 - 2 Urine WBC >50 Ur Epithelial Cells 0 - 2 Urine Bacteria Moderate Urine Mucus Few Influenza Type A Ag Influenza Type B Ag 06/28/19 06/28/19 06/28/19 18:40 18:40 18:40 WBC RBC Hgb Hct MCV MCH MCHC RDW Plt Count MPV Gran % Neutrophils % Band Neutrophils % Lymphocytes % Monocytes % Eosinophils % Basophils % Absolute Neutrophils Lymphocytes Monocytes Differential Comment Platelet Estimate Sodium 140 Potassium 3.8 Chloride 100 Carbon Dioxide 27.0 Anion Gap 13.0 BUN 24 H Creatinine 1.0 H Estimated GFR 57 Random Glucose 162 H Lactic Acid 1.5 Calcium 9.6 Total Bilirubin 0.40 AST 18 ALT 11 Alkaline Phosphatase 61 Total Protein 7.3 Albumin 4.2 Globulin 3.1 Albumin/Globulin Ratio 1.4 Lipase 19 Procalcitonin Urine Color Urine Appearance Urine pH Ur Specific Mcgill Urine Protein Urine Glucose (UA) Urine Ketones Urine Blood Urine Nitrite Urine Bilirubin Urine Urobilinogen Ur Leukocyte Esterase Urine RBC Urine WBC Ur Epithelial Cells Urine Bacteria Urine Mucus Influenza Type A Ag Negative Influenza Type B Ag Negative 06/28/19 18:40 WBC 6.6 RBC 4.18 Hgb 12.3 Hct 39.1 MCV 93.5 MCH 29.4 MCHC 31.5 L RDW 13.4 Plt Count 254 MPV 9.5 Gran % Neutrophils % 81.0 H Band Neutrophils % 1.0 Lymphocytes % Monocytes % Eosinophils % Not Reportable Basophils % Not Reportable Absolute Neutrophils 5.32 Lymphocytes 9.0 L Monocytes 9.0 Differential Comment N Platelet Estimate Normal Sodium Potassium Chloride Carbon Dioxide Anion Gap BUN Creatinine Estimated GFR Random Glucose Lactic Acid Calcium Total Bilirubin AST ALT Alkaline Phosphatase Total Protein Albumin Globulin Albumin/Globulin Ratio Lipase Procalcitonin Urine Color Urine Appearance Urine pH Ur Specific Mcgill Urine Protein Urine Glucose (UA) Urine Ketones Urine Blood Urine Nitrite Urine Bilirubin Urine Urobilinogen Ur Leukocyte Esterase Urine RBC Urine WBC Ur Epithelial Cells Urine Bacteria Urine Mucus Influenza Type A Ag Influenza Type B Ag I Past Surgical History Date/Surgery right knee scope 03-31-18 RML lung removed (benign) ovary tonsils many cosmetic sx's Past Medical History Hx Respiratory Disorders Yes Hx Bronchitis Yes Hx Pneumonia Yes Hx of SOB Yes: with exertion 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 Hx Cardiovascular Disorders No Hx Neurological Disorders No Hx Gastrointestinal Disorders Yes Hx Gastroesophageal Reflux Yes: occassionally Hx Genitourinary Disorders Yes Hx Bladder Problem Yes: incontinent takes meds wears a pad at times Hx Kidney Stones Yes Hx Endocrine Disorders No Hx of Immunosuppressed No Hx Musculoskeletal Disorders Yes Comment: right knee pain Hx Psychiatric Problems No Hx Hematology/Oncology Disorders Yes 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 Yes Family Hx Comment (NOT TO BE USED IN mom and dad MVA's dad at PLACE OF ITEMS BELOW) age 93 Hx Stroke Brother/Sister Skin Risk Assessment Scale Sensory Perception No Impairment Moisture Risk Occasionally Moist Activity Risk Walks Occasionally Mobility Risk No Limitations Nutrition Risk Adequate Friction & Shear Risk No Apparent Problem Skin Risk Total Score (points) 20 Skin Risk Evaluation No Risk Wound Present on Admission Wound present upon admission? No Medications Acetaminophen (Tylenol 500mg Tab) 1,000 mg PO Q6H PRN PRN Reason: PAIN - MILD(1-4)/FEVER Ondansetron HCl (Zofran) 4 mg IVP Q4H PRN PRN Reason: NAUSEA Sodium Chloride () 1,000 mls @ 125 mls/hr IV .Q8H ONE Stop: 06/29/19 04:47 Last Admin: 06/28/19 21:44 Dose: 125 mls/hr Documented by: SELVIN CEFTRIAXONE 1GM/50ML BAG (Ceftriaxone 1 Gm-D5w Bag) 1 gm in 50 mls @ 100 mls/hr IVPB NOW ONE Problems Fever (Acute) R50.9 Nausea & vomiting (Acute) R11.2 Pyelonephritis (Acute) N12 06/29/19: Patient independently ambulating halls this AM without distress. Patient A&Ox4. Reported fever throughout the night. Giving PRN Tylenol. Patient appears to be concerned for repeat of sepsis, asking when her next antibiotic is due and if we did all appropriate testing for infection. Patient eager to D/C home. Would like another dose IV Rocephin and monitor pain control and fever throughout AM/early afternoon. No nursing concerns noted during admission. Urine & blood cultures remain pending. 06/29/19 1400: Discussed potential D/C with patient. Patient states pain and nausea resolved. Tolerating PO intake and comfortable with plan and going home on oral antibiotics. Procedures: Imaging and X-Rays 06/28/19 18:35 ABDOMEN/PELVIS WO CONTRAST [CT] Stat 06/28/19 19:38 CHEST 2 VIEWS [RAD] Stat Abnormal Labs: Abnormal Lab Results 06/28/19 06/28/19 06/28/19 Range/Units 18:40 18:40 19:44 RBC (3.80-5.40) M/uL Hgb (11.6-16.0) gm/dl Hct (35.0-47.0) % MCHC 31.5 L (32-36) g/dl Gran % (47-80) % Neutrophils % 81.0 H (47-80) % Lymphocytes % (16-45) % Monocytes % (0-9) % Lymphocytes 9.0 L (16-45) % BUN 24 H (8-23) mg/dL Creatinine 1.0 H (0.5-0.9) mg/dL Random Glucose 162 H (74-109) mg/dL Urine Appearance Turbid H Urine Protein 100 mg/dl H (NEGATIVE) Urine Blood Large H (NEGATIVE) Urine Nitrite Positive H (NEGATIVE) Ur Leukocyte Esterase Large H (NEGATIVE) 06/29/19 Range/Units 06:30 RBC 3.70 L (3.80-5.40) M/uL Hgb 10.7 L (11.6-16.0) gm/dl Hct 34.9 L (35.0-47.0) % MCHC 30.7 L (32-36) g/dl Gran % 82.3 H (47-80) % Neutrophils % (47-80) % Lymphocytes % 7.1 L (16-45) % Monocytes % 10.5 H (0-9) % Lymphocytes (16-45) % BUN (8-23) mg/dL Creatinine (0.5-0.9) mg/dL Random Glucose (74-109) mg/dL Urine Appearance Urine Protein (NEGATIVE) Urine Blood (NEGATIVE) Urine Nitrite (NEGATIVE) Ur Leukocyte Esterase (NEGATIVE) Condition at Discharge: (2) Stable VTE Discharge VTE Reason For No Overlap Therapy: Not Indicated Discharge Medications - Discharge Medications Prescriptions: Cefdinir 300 mg PO BID #13 capsule Ondansetron [Zofran Odt] 4 mg PO Q8H PRN #15 tab.rapdis PRN Reason: Nausea Home Medications: Ambulatory Orders Multivitamin [Daily Multiple Vitamin] 1 tab PO DAILY 06/28/19 [Last Taken Unknown] Solifenacin Succinate [Vesicare] 10 mg PO DAILY 06/28/19 [Last Taken Unknown] Cefdinir 300 mg PO BID #13 capsule 06/29/19 [Last Taken Unknown] Ondansetron [Zofran Odt] 4 mg PO Q8H PRN #15 tab.rapdis 06/29/19 [Last Taken Unknown] Discharge Plan - Discharge Instructions Activity at Discharge: Increase Activity as Tolerated Diet at Discharge: Advance to Usual Diet Additional Instructions: Follow-up with your PCP in 7-10 days Begin Cefdinir twice daily with first dose tonight Zofran as needed every 8 hours for nausea OTC Naprosyn (Naproxen), Tylenol or Motrin for fever/pain Drink plenty of fluids Go back to ER if symptoms worsen or do not resolve in 5-7 days Quality Measures - Quality Measures Quality Measures: Advance Directives, Documentation of Current Medications in Medical Record, Elder Maltreatment Screen and Follow-Up Plan, Screening for High Blood Pressure and F/U Documented - Current Medications Quality Measure: Measure #130: Documentation of Current Medications Documentation of Current Medications: <Current Medications Documented/Reviewed> [L4473] - Blood Pressure Screening Quality Measure: Screening for High Blood Pressure and Follow-Up Documented Does Patient Have Any of the Following: No Blood Pressure Classification: Pre-Hypertensive BP Reading Systolic Measurement: 123 Diastolic Measurement: 63 Screening for High Blood Pressure: < Pre-Hypertensive BP, F/U Documented > [G8950] Pre-Hypertensive Follow-up Interventions: Referral to alternative/primary care provider. - Advance Directives Quality Measure: Measure #47: Care Plan Advance Directives Established: No Advance Directives Information Provided To Patient: Declined Advance Directives on File: No Living Will: No Power of Coating Mixer Supervisor: No Advance Care Planning: <Care Plan/Decision Maker Not Decided; Discussed & Documented> [1128F] - Elder Abuse Suspicion Index Screening: Elder Abuse Suspicion Index Screening Rely on people for bathing, dressing, shopping, banking, etc: No Prevented from getting food, clothes, medication, etc: No Made to feel shamed or threatened by someone: No Forced to sign papers or use money against will: No Feel afraid, touched in ways not wanted or hurt physically: No Poor eye contact, withdrawn, malnourished, cuts or bruises: No Screening Result: Negative result EASI Reference Information: Mirta KLEIN, Giselle C, Gallo D, Mariluz Slater.Development and validation of a tool to assist physicians identification of elder abuse: The Elder Abuse Suspicion Index (EASI ). Journal of Elder Abuse and Neglect, 2008; 20 (3): 276-300. - Elder Maltreatment Screen Quality Measures: Elder Maltreatment Screen and Follow-Up Plan Elder Maltreatment Screen: <Negative, No Follow-Up Plan Required> [G8734]
[2019-06-30] MEDS ORDERED: ENOXAPARIN 40 MG/0.4 ML SYR SQ SCH (10:00)
== END 2019-06-29 14:53 | disposition home or self-care (01) | DRG 690 ==
LOC: ER 18:23 → OBSVTOIN 20:41 → MEDSURG 20:41
PROVIDERS: ADMIT Internal Medicine; ATTEND Internal Medicine
DX: N12 Tubulo-interstitial nephritis, not specified as acute or chronic (principal); R50.9 Fever, unspecified; R32 Unspecified urinary incontinence; Z90.2 Acquired absence of lung [part of]; Z87.442 Personal history of urinary calculi; Z85.110 Personal history of malignant carcinoid tumor of bronchus and lung
CPT/HCPCS: 71046; 74176; 80053; 81001; 83605; 83690; 84145; 85025; 85027; 87040; 87400; 96374; 99223; 99285; J0696; J1885; J2405; J7030